=== PATIENT | male | born 1940 | race Caucasian/White ===

== ENCOUNTER 2016-08-11 10:37 | Outpatient (CLI) | payer MEDICARE, BC ==
[~2016-08-11] VITALS: Ht 182.9 cm; Wt 149.5 kg
[~2016-08-11 10:37] MED LIST: ADVAIR 250/501 DISK INH; ALDACTONE25 MG PO; ASPIRIN325 MG PO; ATROVENT 0.02%2.5 ML INH; BAYER CHEWABLE81 MG PO; BETAPACE 80 MG80 MG; BETAPACE 80 MG80 MG PO; BETAPACE240 MG PO; BROVANA15 MCG/2 M INH; BUMEX 1 MG TAB1 MG OR; BUMEX2 MG PO; COREG 3.1253.125 MG PO; COREG6.25 MG PO; COUMADIN5 MG; COUMADIN5 MG PO; COUMADIN7.5 MG; COUMADIN7.5 MG PO; DUONEB 2.5-0.5 M3 ML INH; FIBER LAXATIVE500 MG; FIBER LAXATIVE500 MG PO; GLUCOPHAGE500 MG PO; HYDROCODONE-APA1 TAB PO; IPRAT-ALBUT 0.5-3 ML UPD; LASIX20 MG PO; MICRO-K10 MEQ PO; NEURONTIN 300300 MG PO; NEURONTIN800 MG PO; NORCO 10/325 TA1 TA1 OR; PLAVIX75 MG PO; PROSCAR5 MG; PROSCAR5 MG PO; REQUIP1 MG; REQUIP1 MG PO; SINEMET 25-1001 EACH PO; SINEMET 25/1001 TAB; SPIRIVA18 MCG INH; STOOL SOFTENER100 M1 PO; STOOL SOFTENER240 MG; VITAMIN D31000 UNIT; VITAMIN D31000 UNIT PO; ZAROXOLYN5 MG PO
[2016-08-11] MEDS ORDERED: BUMEX 1 MG TAB1 MG PO (11:53)
[2016-08-11 11:58] LABS: CALCIUM 8.6 mg/dL (8.5-10.1); CARBON DIOXIDE 32.3 mmol/L (21.0-32.0); CREATININE - SERUM 2.2 mg/dL (0.6-1.3); POTASSIUM - SERUM 5.3 mmol/L (3.5-5.1)
--- NOTE | 2016-08-11 12:27 | NUR ---
#20 GUAGE IV STARTED IN RIGHT WRIST. BUMEX DRIP STARTED AT 10ML/HR VIA PUMP. DOBUTREX 500MG IN 250 STARTED AT 5MCG/KG/MIN BASED ON 329 POUNDS (22.5ML/HR) PER PUMP. REGULAR DIET SERVED. SITTING ON SIDE OF BED. OXYGEN PLACED AT 3L NC, STATES WEARS IT AT HOME. BIPAP SET UP FOR NAP PER REQUEST.
--- NOTE | 2016-08-11 13:30 | NUR ---
LAB RESULTS CALLED TO DR TRACY INCLUDING K AND BUN, CREATININE RESULTS, 0 ORDERS RECEIVED.
--- NOTE | 2016-08-11 14:00 | NUR ---
PACED RHYTHM ON MONITOR. DENIES NEEDS.
[2016-08-11 15:23] VITALS: BP 158/67; Ht 182.9 cm; Wt 149.5 kg
--- NOTE | 2016-08-11 15:45 | NUR ---
WATER GIVEN PER REQUEST. VITAL SIGNS STABLE. SEE VITAL SIGN SHEET.
--- NOTE | 2016-08-11 16:50 | NUR ---
ROOM CHECKED. BP SLIGHTLY HIGHER, STATES "MY LEG WAS BOTHERING ME, SO I JUST TOOK A PILL FOR IT, THAT'S PROBABLY WHY IT'S HIGHER." WILL CALL FOR A SUPPER TRAY PER HIS REQUEST.
--- NOTE | 2016-08-11 17:44 | NUR ---
TOOK AN UPDRAFT. NOW SITTING ON SIDE OF BED EATING SUPPER. OXYGEN ON AT 3L NC. DENIES FURTHER NEEDS.
--- NOTE | 2016-08-11 19:32 | NUR ---
RESPIRATIONS WITHOUT DISTRESS. STATES HIS HAND IS CRAMPING LIKE HIS POTASSIUM MAY BE LOW. INFORMED HIM THAT HIS POTASSIUM WAS HIGH ON ADMISSION. STATES "THAT'S WHY DR GOULD TOOK ME OFF OF IT." INFORMED HIM TO NOT TAKE HIS POTASSIUM UNLESS INSTRUCTED TO DO SO BY A DR BECAUSE IT WAS ELEVATED ON ADMISSION, VOICED UNDERSTANDING.
--- NOTE | 2016-08-11 20:25 | NUR ---
IV DISCONTINUED INTACT. WEIGHED 225.5. UP TO BATHROOM.
--- NOTE | 2016-08-11 20:30 | NUR ---
DISCHARGE INSTRUCTIONS GIVEN, VOICED UNDERSTANDING.
--- NOTE | 2016-08-11 20:50 | NUR ---
HAS TAKEN OWN MONITOR OFF AND DRESSED. STATES IS WAITING OUTSIDE. DISCHARGE HOME VIA WC.
== END 2016-08-11 20:50 | disposition home or self-care (01) ==
LOC: D.OPS 10:37
PROVIDERS: Internal Medicine Interventional Cardiology
DX: I50.9 Heart failure, unspecified (principal); I42.9 Cardiomyopathy, unspecified

== ENCOUNTER → 2016-09-13 16:20 | Outpatient (CLI) | payer MEDICARE, BC ==
[2016-08-11 15:23] VITALS: BMI 44.7
[~2016-09-13 16:20] MED LIST changes: +ALDACTONE50 MG PO; +BUMEX 1 MG TAB1 MG PO; +FLUTICASONE PRO16 GM NASAL
[2016-09-13 17:16] LABS: ANION GAP 16.1 mmol/L (8-16); CARBON DIOXIDE 25.6 mmol/L (21.0-32.0); CREATININE - SERUM 3.5 mg/dL (0.6-1.3); T4 THYROXIN - FREE 1.07 ng/dL (0.76-1.46); THYROID STIMULATING HORMONE 2.98 uIU/mL (0.36-3.74)
[2016-09-13 17:17] LABS: POTASSIUM - SERUM 6.7 mmol/L (3.5-5.1)
[2016-09-14 09:20] LABS: FOLATE (FOLIC ACID) - SERUM >20.0 ng/mL (>3.0)
== END | disposition home or self-care (01) ==
LOC: D.LABREF 16:20
PROVIDERS: Internal Medicine Interventional Cardiology
DX: I50.9 Heart failure, unspecified (principal); I10 Essential (primary) hypertension

== ENCOUNTER 2016-11-21 08:03 | Outpatient (CLI) | payer MEDICARE, BC ==
[~2016-11-21] VITALS: Ht 182.9 cm; Wt 139.5 kg
--- NOTE | ~2016-11-21 | HEMODYNAMI ---
PATIENT:CLARITZA BUSTAMANTE MEDICAL RECORD: [id number] : 36 LOCATION:[facility] ADMISSION DATE: 11/21/16 Generatedon:11/21/201613:00 Patient name: CLARITZA BUSTAMANTE Patient #: [id number] SSN: : 1 09/15/1939 Date of study: 11/21/2016 Page: Of Hemodynamic Procedure Report Patient Data Patient Demographics Procedure consent was obtained First Name: CLARITZA Gender: Male Last Name: ROBBY : 1940 [facility] Initial: DENEEN Age: 76 year(s) Patient #: [id number] Race: Unknown Additional ID: [id number] Contact details [address]: [address] [place] [address] State: [place] City: [place] Zip code: [address] Past Medical History Allergies: No known allergies Admission Admission Data Admission Date: 11/21/2016 Admission Time: 8:03 Height (in.): 72 BSA: 2.56 (m2) Height (cm.): 182.88 BMI: 41.64 (kg/m2) Weight (lbs.): 307 Weight (kg.): 139.25 Lab Results Lab Result Date: 11/21/2016 Lab Result Time: 0:00 Biochemistry Name Units Result Min Max BUN mg/dl 75 --(----)-* 7 18 CK-MB ng/ml 1.7 --(-*--)-- 0 3.6 Creatinine mg/dl 2.5 --(----)-* 0.6 1.3 Creatinine l 44 --(*---)-- 21 215 Kinase Troponin l ng/ml 0.018 --(-*--)-- 0 0.06 CBC Name Units Result Min Max Hemoglobin g/dl 12 *-(----)-- 13.5 17.5 Procedure Procedure Types Cath Procedure Diagnostic Procedure LHC LHC w/Coronaries w/Grafts PCI Procedure Coronary Stent Initial Miscellaneous Procedures Moderate Sedation up to 30 minutes Procedure Description Procedure Date Procedure Date: 11/21/2016 Procedure Start Time: 12:20 Procedure Staff Name Function Giovanni Avendano MD Performing Physician Vern Camacho RT Scrub Ayaan Fields RN Nurse Maria L Fairbanks RT Monitor Procedure Data Cath Procedure Fluoroscopy Diagnostic fluoroscopy Total fluoroscopy Time: 8.3 time: 8.3 min min Diagnostic fluoroscopy Total fluoroscopy dose: dose: 1373 mGy 1373 mGy Contrast Material Contrast Material Type Amount (ml) Isovue 300 107 Entry Location Entry Primary Successful Side Size Upsize Upsize Entry Closure Succes sful Closure Location (Fr) 1 (Fr) 2 (Fr) Remarks Device Remarks Femoral Right 5 Fr 6 Fr Exoseal artery Short Estimated blood loss: 10 ml Diagnostic catheters Device Type Used For End Catheter Placement Cordis 5Fr Pigtail LV Angiography Catheter (MP) Cordis 5Fr JL 4.0 Left Coronary Catheter (MP) Angiography Cordis 5Fr 3DRC Catheter Internal mammary (MP) arteriography Cordis 5Fr 3DRC Catheter Right Coronary (MP) Angiography Diagnostic Infinity 5Fr SVG Angiography AR 2 MOD catheter Procedure Complications No complications Procedure Medications Medication Administration Route Dosage Oxygen NC 2 l/min Heparin Flush Bag added to field 2 bags (1000units/500ml NS) 0.9% NaCl I.V. 100 ml/hr Fentanyl I.V. 50 mcg Versed I.V. 1 mg Heparin Bolus I.V. 4000 units Integrilin (Bolus I.V. 11.3 ml 2mg/ml) Integrilin (Bolus wasted 8.7 ml 2mg/ml) Plavix P.O. 600 mg Hemodynamics Rest BSA: 2.56 (m2) HGB: 12 (g/dl) O2 Consumption: Estimated: 292.85 (ml/min) O2 Cons umption indexed: Estimated:114.39 (ml/min/m) Heart Rate: 70 (bpm) Snapshots Pre Cath Intra NCS Post Cath Vital Signs Time Heart Resp SPO2 NIBP (mmHg) Rhythm Pain Sedation Rate (ipm) (%) Status Level (bpm) 12:06:49 69 10 84 151/76(103) NSR 0 (11) 10(A) , No pain 12:12:53 67 20 99 135/77(118) NSR 0 (11) 10(A) , No pain 12:17:05 69 19 97 134/69(97) NSR 0 (11) 10(A) , No pain 12:21:17 70 19 98 124/58(92) NSR 0 (11) 10(A) , No pain 12:25:27 69 19 99 120/63(94) NSR 0 (11) 9(A) , No pain 12:29:35 69 18 100 126/76(105) NSR 0 (11) 9(A) , No pain 12:33:49 71 16 99 134/74(108) NSR 0 (11) 9(A) , No pain 12:37:57 69 17 99 136/84(104) NSR 0 (11) 9(A) , No pain 12:42:13 69 16 100 139/80(116) NSR 0 (11) 9(A) , No pain 12:46:31 69 19 100 149/80(105) NSR 0 (11) 9(A) , No pain 12:51:30 69 16 Measuring NSR 0 (11) 9(A) , No pain 12:51:32 69 16 153/77(107) NSR 0 (11) 9(A) , No pain 12:55:50 41 17 153/93(111) NSR 0 (11) 9(A) , No pain Medications Time Medication Route Dose Verified Delivered Reason Notes Effectiveness by by 12:05:51 Oxygen NC 2 Ayaan Kuo Per physician l/min Donnie Fields RN RN 12:06:02 Heparin Flush added 2 Ayaan Ayaan used for Bag to bags Donnie Fields RN procedure (1000units/500ml field RN NS) 12:06:11 0.9% NaCl I.V. 100 Ayaan Kuo Per physician ml/hr Donnie Fields RN RN 12:20:04 Fentanyl I.V. 50 Ayaan Kuo for sedation mcg Donnie Fields RN RN 12:20:10 Versed I.V. 1 mg Ayaan Kuo for sedation Donnie Fields RN RN 12:33:06 Heparin Bolus I.V. 4000 Ayaan Kuo for units Donnie Fields RN anticoagulation RN 12:33:18 Integrilin I.V. 11.3 Ayaan Kuo for (Bolus 2mg/ml) ml Donnie Fields RN antiplatelet RN therapy 12:33:42 Integrilin wasted 8.7 Ayaan Kuo for (Bolus 2mg/ml) ml Donnie Fields RN antiplatelet RN therapy 12:42:29 Plavix P.O. 600 Ayaan Kuo for mg Donnie Fields RN antiplatelet RN therapy Procedure Log Time Note 11:40:57 Ayaan Fields RN sent for patient. Start room use. 11:50:20 Informed consent obtained and on chart 11:50:56 Diagnostic Cath status Elective 11:50:58 Time tracking: Regular hours 11:51:02 Plan of Care:Hemodynamics will remain stable., Cardiac rhythm will remain stable., Comfort level will be maintained., Respiratory function will remain adequate., Patient/ family verbilizes understanding of procedure., Procedure tolerated without complication., Recovers from procedure without complications.. 11:56:49 Patient received from Pre/Post Procedure Room to CCL 2 Alert and oriented. Tansferred to table in Supine position. 11:56:50 Warm blankets applied, and michelle hugger turned on for patient comfort. 11:56:50 Correct patient and procedure confirmed by team. 11:56:51 ECG and BP/O2 sat monitors applied to patient. 11:56:53 Full Disclosure recording started 12:05:29 Vital chart was started 12:05:51 Oxygen 2 l/min NC was administered by Ayaan Fields RN; Per physician; 12:06:02 Heparin Flush Bag (1000units/500ml NS) 2 bags added to field was administered by Ayaan Fields RN; used for procedure; 12:06:11 0.9% NaCl 100 ml/hr I.V. was administered by Ayaan Fields RN; Per physician; 12:06:42 Rhythm: paced 12:07:02 H&P Date Dictated: 11/15/2016 Within 30 days and on chart., H&P Addendum completed by physician on day of procedure. (MUST COMPLETE FOR ALL OUTPATIENTS). 12:07:04 Pre-procedure instructions explained to patient. 12:07:05 Pre-op teaching completed and patient verbalized understanding. 12:07:06 Family in waiting room. 12:07:07 Patient NPO since Midnight. 12:07:12 Patient allergic to No known allergies 12:07:15 Is the patient allergic to Iodine/contrast media? No. 12:07:16 Is patient on blood thinner?No 12:09:34 Patient diabetic? Yes. 12:09:35 If diabetic: On Metformin? No 12:09:39 Previous problem with sedation/anesthesia? No ? 12:09:40 Snore? Yes 12:09:41 Sleep apnea? No 12:09:43 Deviated septum? No 12:09:44 Opens mouth fully? Yes 12:09:45 Sticks out tongue? Yes 12:09:49 Airway obstruction? Yes COPD 12:09:53 Dentures? Yes In 12:09:56 Pre procedure: right dorsailis pedis pulse 1+ Palpable, but thready & weak; easily obliterated 12:09:58 Patient pain scale 0/10 ?. 12:10:17 IV patent on arrival in left hand with 0.9% NaCl at [facility]. 12:11:15 Lab results completed and on chart. 12:14:50 Lab Result : BUN 75 mg/dl 12:14:50 Lab Result : CK-MB 1.7 ng/ml 12:14:50 Lab Result : Creatinine 2.5 mg/dl 12:14:50 Lab Result : Creatinine Kinase 44 l 12:14:50 Lab Result : Troponin l 0.018 ng/ml 12:14:50 Lab Result : Hemoglobin 12 g/dl 12:15:02 Baseline sample Acquired. 12:15:19 Right groin area was prepped with chlora-prep and draped in sterile fashion 12:15:20 Alarms reviewed by R. N. 12:15:20 Sharps counted by scrub and verified by R.N. 12:15:26 Use device set Femoral Dx 12:15:27 Acist Syringe opened to sterile field. 12:15:27 Bag Decanter opened to sterile field. 12:15:28 Medline Cath Pack opened to sterile field. 12:15:28 Terumo 5Fr [place] Sheath opened to sterile field. 12:15:29 St Tad 260cm J .035 wire opened to sterile field. 12:15:30 Acist Hand Control opened to sterile field. 12:15:31 Acist Manifold opened to sterile field. 12:15:32 Diagnostic Infinity 5Fr Multipack catheter opened to sterile field. 12:15:32 Tegaderm 4 x 4 opened to sterile field. 12:18:45 Zero performed for pressure channel P1 12:19:31 Final Timeout: patient, procedure, and site verified with staff and physician. All members of the team are in agreement. 12:19:34 Right groin site verified by team. 12:19:39 Physical assessment completed. ASA score P 2 - A patient with mild systemic disease as per Giovanni Avendano MD. 12:19:42 Sedation plan: IV Moderate Sedation Versed, Fentanyl 12:20:04 Fentanyl 50 mcg I.V. was administered by Aayan Fields RN; for sedation; 12:20:10 Versed 1 mg I.V. was administered by Ayaan Fields RN; for sedation; 12:20:32 Local anesthetic to right femoral artery with Lidocaine 2% by Giovanni Avendano MD.INITIAL ACCESS ONLY 12:20:39 Merit 18G 9cm Percutaneous Entry needle opened to sterile field. 12:21:21 A 5 Fr sheath was inserted into the Right Femoral artery 12:21:37 A Cordis 5Fr Pigtail Catheter (MP) was advanced over the wire and used for LV Angiography. 12:23:04 LV gram done using MCGEE 12:23:09 Injector settings: Ml/sec: 5, Volume: 15, 12:23:20 EF : 20 % 12:23:21 Catheter removed. 12:23:30 A Cordis 5Fr JL 4.0 Catheter (MP) was advanced over the wire and used for Left Coronary Angiography. 12:24:20 Catheter removed. 12:26:33 Terumo ANGLED SS 260CM glide wire opened to sterile field. 12:26:39 SS glide wire advanced. 12:26:51 Terumo TORQUE DEVICE PLASTIC .038 opened to sterile field. 12:27:18 A Cordis 5Fr 3DRC Catheter (MP) was advanced over the wire and used for Internal mammary arteriography.to LAD. 12:28:10 A Cordis 5Fr 3DRC Catheter (MP) was advanced over the wire and used for Right Coronary Angiography. 12:28:12 Catheter removed. 12:29:54 A Diagnostic Infinity 5Fr AR 2 MOD catheter was advanced over the wire and used for SVG Angiography.to Circ 12:30:41 Catheter removed. 12:31:04 Terumo 6Fr [place] Sheath opened to sterile field. 12:31:05 GRAM Acquisition BasixCompak Inflation Kit opened to sterile field. 12:31:05 Dasilva Whisper J 300cm 0.014 guide wire opened to sterile field. 12:31:55 deltaDNA Launcher 6Fr AR 2.0 guide catheter opened to sterile field. 12:33:06 Heparin Bolus 4000 units I.V. was administered by Ayaan Fields RN; for anticoagulation; 12:33:16 Sheath upsized to a 6 Fr Short. 12:33:18 Integrilin (Bolus 2mg/ml) 11.3 ml I.V. was administered by Ayaan Fields RN; for antiplatelet therapy; 12:33:29 6 Fr AR 2.0 guide catheter was inserted over the wire 12:33:33 Whisper wire advanced. 12:33:42 Integrilin (Bolus 2mg/ml) 8.7 ml wasted was administered by Ayaan Fields RN; for antiplatelet therapy; 12:34:25 Inflation number: 1 A Euphora 2.5 x 15 Balloon was prepped and advanced across the Mid RCA, then inflated to 11 MADALYN for 0:08 (min:sec). 12:34:35 Inflation number: 2 The Euphora 2.5 x 15 Balloon was reinflated across the Mid RCA, to 11 MADALYN for 0:06 (min:sec). 12:35:48 Balloon removed over the wire. 12:36:50 Inflation Number: 3 A Biofreedom 2.5 x 14 stent was prepped and advanced across the Mid RCA. The stent was deployed at 13 MADALYN for 0:10 (min:sec). 12:37:42 Stent catheter was removed intact over wire. 12:39:01 Inflation Number: 1 A Biofreedom 3.0 x 14 stent was prepped and advanced across the Mid RCA1. The stent was deployed at 13 MADALYN for 0:10 (min:sec). 12:39:32 Stent catheter was removed intact over wire. 12:39:47 Wire removed. 12:39:47 Guide catheter removed. 12:39:57 Cordis 6Fr Exoseal opened to sterile field. 12:40:06 Sheath removed intact; hemostasis achieved with Exoseal to the Right Femoral artery. 12:40:09 Procedure ended.(Physican Out) 12:42:29 Plavix 600 mg P.O. was administered by Ayaan Fields RN; for antiplatelet therapy; 12:42:33 Fluoroscopy time 08.30 minutes. 12:42:40 Fluoroscopy dose: 1373 mGy 12:42:40 Flurop Dose total: 1373 12:43:01 Contrast amount:Isovue 300 107ml. 12:43:02 Sharps counted by scrub and verified by R.N. 12:43:05 Insertion/operative site no bleeding no hematoma. 12:43:07 Post-op/insertion site Right Femoral artery dressed using a 4 x 4 and Tegaderm. 12:43:11 Post right femoral artery:stable, clean and dry 12:43:13 Post Procedure Pulses reassessed and unchanged 12:43:16 Post-procedure physical assessment completed. ASA score P 2 - A patient with mild systemic disease as per Giovanni Avendano MD. 12:43:19 Post procedure rhythm: unchanged. 12:44:06 Patient Height : 182.88 cm 12:44:09 Patient Weight : 139.25 kg 12:44:13 Estimated blood loss: 10 ml 12:44:14 Post procedure instruction explained to patient.Patient verbalizes understanding. 12:44:14 Patient needs reinforcement of post procedure teaching. 12:44:27 Procedure type changed to Cath procedure, Diagnostic procedure, LHC, LHC w/Coronaries w/Grafts, PCI procedure, Coronary Stent Initial, Miscellaneous Procedures, Moderate Sedation up to 30 minutes 12:44:32 Procedure Complication : No complications 12:44:35 See physician's report for complete and final results. 12:48:21 Procedure and supply charges have been captured, reviewed, submitted and are correct. 12:57:09 Post right femoral artery:hematoma 12:57:14 Femstop placed over the right femoral artery at 160 mmHg. Hemostasis achieved. 12:57:21 Vital chart was stopped 12:57:25 Report given to Pre/Post Procedure Room. 12:57:35 Patient transfered to Pre/Post Procedure Room with Stretcher. 12:59:51 St Tad Femstop Arch Gold opened to sterile field. 13:00:18 End room use (Document Last) Intervention Summary Intervention Notes Time ActionType Lesion and Equipment Action# Pressure Duration Attributes Used 12:34:25 Inflate Mid RCA Euphora 1 11 00:08 balloon 2.5 x 15 Balloon 12:34:35 Reinflate Mid RCA Euphora 2 11 00:06 balloon 2.5 x 15 Balloon 12:36:50 Place stent Mid RCA Biofreedom 3 13 00:10 2.5 x 14 stent 12:39:01 Place stent Mid RCA1 Biofreedom 1 13 00:10 3.0 x 14 stent Device Usage Item Name Manufacture Quantity Catalog Hospital Part Current Minimal Lot# / Number Charge Number Stock Stock Serial# Code Acist Acist 1 [id number] 264080 791578 464415 20 Syringe Medical Systems Inc Bag Decanter Microtek 1 2002S 4286687 09851 353025 5 Medical Inc. Medline Cath Cardinal 1 [id number] 900402 63645 643415 5 Pack Health Terumo 5Fr Terumo 1 [id number] 652714 428232 046924 [address] Tad 1 593394 601960 428912 731276 30 260cm J .035 wire Acist Hand Acist 1 43230 636948 109615 417875 5 Control Medical Systems Inc Acist Acist 1 66885 423521 006020 073613 5 Manifold Medical Systems Inc Diagnostic Cardinal 1 PA0865 089858 78229 057571 30 Infinity 5Fr Health Multipack catheter Tegaderm 4 x 3M 1 1626W 049501 833629 418603 5 4 Merit 18G Merit 1 [id number] 462951 770884 330285 5 9cm Medical Percutaneous Entry needle Cordis 5Fr Cardinal 1 215196 5 Pigtail Health Catheter (MP) Cordis 5Fr Cardinal 1 963160 5 JL 4.0 Health Catheter (MP) Terumo Terumo 1 [id number] 857837 982335 112471 5 ANGLED SS 260CM glide wire Terumo [place] 1 TD01 255623 613334 488790 5 TORQUE Scientific DEVICE PLASTIC .038 Cordis 5Fr Cardinal 1 836110 5 3DRC Health Catheter (MP) Diagnostic Cardinal 1 [id number] 337521 037161 502059 20 Infinity 5Fr Health AR 2 MOD catheter Terumo 6Fr Terumo 1 [id number] 321979 494741 317713 40 [place] Sheath Merit Merit 1 RX9455 153294 332640 850832 15 [employer] Medical Inflation Kit Dasilva Dasilva 1 [id number] 643636 398731 725471 5 Whisper J Vascular 300cm 0.014 guide wire Medtronic Medtronic 1 [id number] 243475 85696 281352 1 Launcher 6Fr AR 2.0 SH guide catheter Euphora 2.5 Medtronic 1 [id number] 009784 358354 817966 5 [id number] x 15 Balloon Biofreedom Biosensors 1 [facility]2-5304 485821 623920 5 [id number] 2.5 x 14 [place] SA stent Biofreedom Biosensors 1 [facility]2-3014 276582 062937 5 [id number] 3.0 x 14 [place] SA stent Cordis 6Fr Cardinal 1 EX600 111982 002440 559873 [address] [facility] [address] T[address] St Tad 1 [id number] 143873 377237 349518 5 Femstop Arch Gold Signature Audit [place] Stage Time Signature Unsigned Intra-Procedure 11/21/2016 Maria L 1:00:30 PM Counts RT(R) Signatures Monitor : Maria L Signature : Counts RT Date : Time : [id number] [place] [address]
[~2016-11-21 08:03] MED LIST changes: -ALDACTONE50 MG PO; -FLUTICASONE PRO16 GM NASAL
[2016-11-21] MEDS ORDERED: ALDACTONE50 MG PO (08:44)
[2016-11-21 08:50] VITALS: BP 126/71; Ht 182.9 cm; Wt 139.5 kg
[2016-11-21 09:06] LABS: BASOPHILS 0.3 % (0-2); EOSINOPHILS 1.9 % (0-7); HEMATOCRIT 37.9 % (42.0-54.0); IMMATURE GRANULOCYTES 0.3 % (0-5); LYMPHOCYTES 17.5 % (15-50); MCH 30.3 pg (26.0-34.0); MCHC 31.7 g/dL (31.0-37.0); MCV 95.7 fL (80.0-100.0); MEAN PLATELET VOLUME 9.7 fL (7.4-10.4); MONOCYTES 11.9 % (2-11); NEUTROPHILS 68.1 % (40-80); PLATELET COUNT 435 10x3/uL (130-400); RBC 3.96 10x6/uL (4.20-6.10); RDW 13.9 % (11.5-14.5)
[2016-11-21 09:16] LABS: INR 1.15 (0.85-1.17); PROTIME 14.6 SECONDS (11.6-15.0)
[2016-11-21 09:33] LABS: CALC OSMOLALITY 301 mosm/kg (275-300); CALCIUM 8.7 mg/dL (8.5-10.1); CARBON DIOXIDE 30.6 mmol/L (21.0-32.0); CHLORIDE - SERUM 102 mmol/L (98-107); CKMB 1.7 U/L (0.0-3.6); CREATINE KINASE 44 UL (21-232); CREATININE - SERUM 2.5 mg/dL (0.6-1.3); GLUCOSE 130 mg/dL (74-106); SODIUM 139 mmol/L (136-145); TROPONIN-I 0.018 ng/mL (0.000-0.060); UREA NITROGEN 75 mg/dL (7-18); eGFR NON AFRICAN AMERICAN 27 mL/min (90-120)
--- NOTE | 2016-11-21 16:22 | NUR ---
1330-RIGHT GROIN WITH FEMSTOP IN PLACE, NO HEMATOMA OR BLEEDING NOTED
--- NOTE | 2016-11-21 16:23 | NUR ---
1400-PRESSURE OFF FEMSTOP, NO BLEEDING NOTED
--- NOTE | 2016-11-23 08:06 | OP ---
PATIENT NAME: CLARITZA BUSTAMANTE MEDICAL RECORD: [id number] :38 LOCATION:D[facility] ADMISSION DATE: SURGEON: DANILO TRACY MD DATE OF OPERATION: 11/21/2016 PROCEDURES: 1. PTCA stent RCA. 2. Left heart catheterization. 3. Selective coronary angiography. 4. Left ventriculogram. 5. Vein graft angiography. 6. JULIAN angiography. PROCEDURE: After informed consent was obtained and after detailed explanation of the risks, benefits as well as alternative therapies, the patient elected to proceed with angiogram and angioplasty. The right femoral area was prepped and draped in normal sterile fashion. Right femoral artery was cannulated via modified Seldinger technique with placement of 6-[place] sheath. All catheters exchanged through this sheath. FINDINGS: Left ventriculogram was performed in standard 30-degree MCGEE view reveals global hypokinesis throughout all segments. Overall ejection fraction is 20%. SELECTIVE CORONARY ANGIOGRAPHY: 1. Left main showed no significant angiographic disease. 2. Left circumflex is closed in the mid vessel. 3. Left anterior descending is closed in mid vessel. 4. JULIAN to the LAD is widely patent. Distal LAD is diffusely diseased, but patent. 5. Vein graft to the circumflex is patent; however, this vein graft is extremely degenerated throughout, not amenable to transcatheter revascularization due to the severe diffuse degeneration. 6. The right coronary has a previously placed stent. There is 85% in-stent restenosis proximally and in the mid vessel. These lesions are approximately 10 mm in length each. Both are 85% stenosed. There is a 2.5 vessel in the mid vessel, a 3.0 vessel in the proximal vessel. There is ELIUD-3 flow. PERCUTANEOUS TRANSLUMINAL CORONARY ANGIOPLASTY STENT OF THE RIGHT CORONARY ARTERY: Stents used were 2.5 x 14 and 3.0 x 14 BioFreedom stents. The 3.0 was in the proximal vessel, 2.5 in the vessel. Result was 0% residual stenosis, ELIUD-3 flow. OVERALL IMPRESSION: Successful percutaneous transluminal coronary angioplasty stent of the right coronary artery going from 85% initial stenosis times 2 to 0% residual stenosis. 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
== END 2016-11-21 18:15 | disposition home or self-care (01) ==
LOC: D.CATH 08:03
PROVIDERS: Internal Medicine Interventional Cardiology
DX: I25.119 Atherosclerotic heart disease of native coronary artery with unspecified angina pectoris (principal); T82.855A Stenosis of coronary artery stent, initial encounter; T82.898A Other specified complication of vascular prosthetic devices, implants and grafts, initial encounter; Z00.6 Encounter for examination for normal comparison and control in clinical research program
CPT/HCPCS: 93459; C9600

== ENCOUNTER 2016-11-28 02:08 | Observation (INO) | payer MEDICARE, BC ==
[~2016-11-28] VITALS: Ht 182.9 cm; Wt 136.9 kg
[~2016-11-28 02:08] MED LIST changes: +ALDACTONE50 MG PO
[2016-11-28 02:50] LABS: BASOPHILS 0.2 % (0-2); EOSINOPHILS 1.7 % (0-7); HEMATOCRIT 34.4 % (42.0-54.0); HEMOGLOBIN 10.8 g/dL (13.5-17.5); IMMATURE GRANULOCYTES 0.2 % (0-5); LYMPHOCYTES 20.4 % (15-50); MCH 29.8 pg (26.0-34.0); MCHC 31.4 g/dL (31.0-37.0); MCV 94.8 fL (80.0-100.0); MEAN PLATELET VOLUME 9.7 fL (7.4-10.4); MONOCYTES 10.1 % (2-11); NEUTROPHILS 67.4 % (40-80); PLATELET COUNT 402 10x3/uL (130-400); RBC 3.63 10x6/uL (4.20-6.10); WBC 8.5 10x3/uL (4.8-10.8)
[2016-11-28 02:59] LABS: INR 1.24 (0.85-1.17); PROTIME 15.5 SECONDS (11.6-15.0)
[2016-11-28 03:14] LABS: ALBUMIN 2.9 g/dL (3.4-5.0); ALKALINE PHOSPHATASE 76 U/L (46-116); ALT (SGPT) 10 U/L (10-68); BILIRUBIN - TOTAL 0.27 mg/dL (0.2-1.3); CALC OSMOLALITY 299 mosm/kg (275-300); CALCIUM 8.4 mg/dL (8.5-10.1); CARBON DIOXIDE 32.8 mmol/L (21.0-32.0); CHLORIDE - SERUM 100 mmol/L (98-107); CREATININE - SERUM 2.8 mg/dL (0.6-1.3); GLUCOSE 122 mg/dL (74-106); POTASSIUM - SERUM 4.9 mmol/L (3.5-5.1); PROTEIN - SERUM 7.4 g/dL (6.4-8.2); SODIUM 138 mmol/L (136-145); UREA NITROGEN 76 mg/dL (7-18); eGFR NON AFRICAN AMERICAN 23 mL/min (90-120)
[2016-11-28 03:23] LABS: AMYLASE - SERUM 57 U/L (25-115); CHOL - HDL RATIO 3.2 ratio (2.3-4.9); CHOLESTEROL, TOTAL 162 mg/dL (0-200); CKMB 1.4 U/L (0.0-3.6); CREATINE KINASE 34 UL (21-232); HDL CHOLESTEROL 50 mg/dL (32-96); LDL CHOLESTEROL 98 mg/dL (0-100); LIPASE 133 U/L (73-393); PRO BNP 2015 pg/mL (0-450); TRIGLYCERIDE 70 mg/dL (30-200); TROPONIN-I 0.046 ng/mL (0.000-0.060)
--- NOTE | 2016-11-28 04:20 | NUR ---
PT ARRIVES TO FLOOR VIA STRETCHER ACCOMPANIED BY ER NURSE. PT ASSISTED TO BED AND TELEMTRY PLACED ON TO PT. 100% PACED ON TELE, HR 65. VSS, AFEBRILE. DENIES ANY C/O PAIN UPON ARRIVAL. MEDICATIONS REVIEWED AT THE BEDSIDE. UNIT ROUTINES/PROTCOLS DISCUSSED WITH PT ALONG WITH POC DURING HOSPITAL STAY AND PT VERBALIZES UNDERSTANDING. CALL LIGHT PLACED WITHIN REACH. WILL CONT TO MONITOR.
[2016-11-28] MEDS ORDERED: FLUTICASONE PRO16 GM NASAL (04:33)
[2016-11-28 04:34] VITALS: BP 130/108; BMI 42.1
[2016-11-28 10:10] VITALS: BP 138/63
[2016-11-28 12:54] VITALS: BP 138/54
[2016-11-28 13:36] VITALS: Ht 182.9 cm; Wt 136.9 kg
[2016-11-28 16:23] VITALS: BP 118/57
[2016-11-28 19:00] VITALS: BP 106/50
--- NOTE | 2016-11-28 19:00 | NUR ---
INITIAL ROUNDS MADE. PT SITTING UP IN BED WATCHING TV. NO NEEDS OR C/O VOICED AT THIS TIME. CALL LIGHT IN REACH. WILL CONT TO MONITOR.
--- NOTE | 2016-11-28 23:08 | NUR ---
FILLING LAYER UP AT BEDSIDE FOR VS. NEEDS ADDRESSED AT THIS TIME. CALL LIGHT IN REACH. WILL CONT TO MONITOR.
[2016-11-29] VITALS: BP 112/66
--- NOTE | 2016-11-29 03:21 | NUR ---
RESTING WELL WITH EYES CLOSED, NO DISTRESS NOTED. CALL LIGHT IN REACH. WILL CONT TO MONITOR.
[2016-11-29 04:00] VITALS: BP 140/79
--- NOTE | 2016-11-29 07:30 | NUR ---
RESTING QUIETLY RESP UNLABORED DENIES ANY NEEDS OR DISCOMFORT AT THIS TIME NAD NOTED
[2016-11-29 08:03] VITALS: BP 157/78
--- NOTE | 2016-11-29 09:18 | NUR ---
PT STATES CELL PHONE MISSING SEARCH OF ROOM RESULTED WITH NOTHING REPORTED TO SANTOS MTZ RN AND IAN SHINE RN LAUNDRY AND DIETARY NOTIFIED ABOUT PHONE
[2016-11-29 11:58] VITALS: BP 118/54
--- NOTE | 2016-11-29 12:30 | NUR ---
REVIEWED DISCHARGE INSTRUCTIONS WITH PT STATES UNDERSTANDING COPY GIVEN TO PT SALINE LOCK DCD TO RAC WOTH 20 GA IV CATHETER TIP INTACT NO REDNESS OR EDEMA NOTED TO SITE DISCHARGE HOME IN STABLE CONDITION LEFT UNIT VIA W/C WITH ALL PERSONAL BELONGINGS
== END 2016-11-29 12:30 | disposition home or self-care (01) ==
LOC: D.ER 02:08 → D.M2 03:55 → OBSVTIME 03:55 → D.M2 11-29 12:30
PROVIDERS: Family Medicine; ADMIT Family Medicine
DX: I25.110 Atherosclerotic heart disease of native coronary artery with unstable angina pectoris (principal); Z95.5 Presence of coronary angioplasty implant and graft; Z87.891 Personal history of nicotine dependence; I13.0 Hypertensive heart and chronic kidney disease with heart failure and stage 1 through stage 4 chronic kidney disease, or unspecified chronic kidney disease; I50.9 Heart failure, unspecified; N18.9 Chronic kidney disease, unspecified; Z95.0 Presence of cardiac pacemaker; E11.22 Type 2 diabetes mellitus with diabetic chronic kidney disease; E11.40 Type 2 diabetes mellitus with diabetic neuropathy, unspecified; G25.81 Restless legs syndrome; J44.9 Chronic obstructive pulmonary disease, unspecified; I48.91 Unspecified atrial fibrillation; D63.1 Anemia in chronic kidney disease; I42.9 Cardiomyopathy, unspecified